=== PATIENT | male | born 1990 | race African-American/Black ===

== ENCOUNTER 2017-09-28 09:43 | Emergency (ER) | payer OTHER ==
[~2017-09-28] VITALS: Ht 180.3 cm; Wt 72.6 kg
[2017-09-28 09:45] VITALS: BP 131/76
== END 2017-09-28 10:10 | disposition home or self-care (01) ==
LOC: ER 09:43
DX: A56.8 Sexually transmitted chlamydial infection of other sites (principal); F17.210 Nicotine dependence, cigarettes, uncomplicated

== ENCOUNTER 2018-04-05 01:42 | Emergency (ER) | payer OTHER ==
[~2018-04-05] VITALS: Ht 180.3 cm; Wt 72.6 kg
[2018-04-05 02:24] LABS: URINE BILIRUBIN NEGATIVE (Negative); URINE BLOOD NEGATIVE (Negative); URINE CLARITY CLEAR; URINE COLOR T; URINE GLUCOSE-RANDOM* NEGATIVE (Negative); URINE KETONES NEGATIVE (Negative); URINE LEUKOCYTES-REFLEX NEGATIVE (Negative); URINE NITRITE-REFLEX NEGATIVE (Negative); URINE PROTEIN (DIPSTICK) NEGATIVE (Negative); URINE SPECIFIC GRAVITY >= 1.030 (1.005-1.035); URINE UROBILINOGEN 0.2 E.U./dl (0.2-1.0)
[2018-04-05] MEDS ORDERED: TRIAMCINOLONE 080 G3 TOP (02:44)
[2018-04-05 02:50] VITALS: BP 147/80
== END 2018-04-05 03:00 | disposition home or self-care (01) ==
LOC: ER 01:42
PROVIDERS: Student in an Organized Health Care Education/Training Program
DX: N48.1 Balanitis (principal); F17.210 Nicotine dependence, cigarettes, uncomplicated

== ENCOUNTER 2018-10-02 23:26 | Emergency (ER) | payer OTHER ==
[~2018-10-02] VITALS: Ht 177.8 cm; Wt 77.1 kg
[~2018-10-02 23:26] MED LIST: TRIAMCINOLONE 080 G3 TOP
[2018-10-02] MEDS ORDERED: NOHOMEMEDICATIONS (23:39)
[2018-10-03] MEDS ORDERED: TRIAMCINOLONE A80 G2 TOP (03:13)
[2018-10-03 03:53] VITALS: BP 130/76
== END 2018-10-03 03:50 | disposition home or self-care (01) ==
LOC: ER 23:26
PROVIDERS: Emergency Medicine
DX: H53.8 Other visual disturbances (principal); F17.210 Nicotine dependence, cigarettes, uncomplicated

== ENCOUNTER 2019-02-06 08:20 | Emergency (ER) | payer OTHER ==
[~2019-02-06] VITALS: Ht 177.8 cm; Wt 74.4 kg
[~2019-02-06 08:20] MED LIST changes: +NOHOMEMEDICATIONS; +TRIAMCINOLONE A80 G2 TOP
[2019-02-06 08:45] LABS: URINE BILIRUBIN NEGATIVE (Negative); URINE BLOOD NEGATIVE (Negative); URINE CLARITY CLEAR; URINE COLOR YELLOW; URINE GLUCOSE-RANDOM* NEGATIVE (Negative); URINE KETONES NEGATIVE (Negative); URINE LEUKOCYTES-REFLEX NEGATIVE (Negative); URINE NITRITE-REFLEX NEGATIVE (Negative); URINE PROTEIN (DIPSTICK) NEGATIVE (Negative); URINE SPECIFIC GRAVITY 1.025 (1.005-1.035); URINE UROBILINOGEN 0.2 E.U./dl (0.2-1.0)
[2019-02-06 09:19] VITALS: BP 123/77
== END 2019-02-06 09:25 | disposition home or self-care (01) ==
LOC: ER 08:20
PROVIDERS: Emergency Medicine
DX: M54.5 Low back pain (principal); F17.210 Nicotine dependence, cigarettes, uncomplicated

== ENCOUNTER 2020-12-29 16:54 | Emergency (ER) | payer OTHER ==
[~2020-12-29] VITALS: Ht 180.3 cm; Wt 79.4 kg
[2020-12-29] MEDS ORDERED: CORTISPORIN OTI10 M2 OTIC (17:05)
[2020-12-29 17:25] VITALS: BP 141/89
== END 2020-12-29 17:25 | disposition home or self-care (01) ==
LOC: ER 16:54
DX: T16.2XXA Foreign body in left ear, initial encounter (principal); F17.210 Nicotine dependence, cigarettes, uncomplicated; X58.XXXA Exposure to other specified factors, initial encounter; Y93.89 Activity, other specified; Y92.89 Other specified places as the place of occurrence of the external cause; Y99.8 Other external cause status

== ENCOUNTER 2021-02-07 13:16 | Observation (INO) | payer OTHER ==
[~2021-02-07] VITALS: Ht 180.3 cm; Wt 76.2 kg
[~2021-02-07 13:16] MED LIST changes: +CORTISPORIN OTI10 M2 OTIC
[2021-02-07 13:17] VITALS: BP 145/83
--- NOTE | 2021-02-07 14:03 | EKG ---
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
[2021-02-07 14:49] LABS: CALCIUM 8.2 mg/dL (8.5-10.1); CREATININE 1.1 mg/dL (0.7-1.3); POTASSIUM 4.2 mmol/L (3.5-5.1)
[2021-02-07 14:52] LABS: ALBUMIN 3.7 g/dL (3.4-5.0); TOTAL BILIRUBIN 0.2 mg/dL (0.2-1.0); TOTAL PROTEIN 6.8 g/dL (6.4-8.2)
[2021-02-07 15:37] LABS: ABSOLUTE NEUTROPHILS 1.3 thou/uL (1.4-8.2); BASOPHILS 1.7 % (0.0-2.0); EOSINOPHILS 3.1 % (0.0-3.0); HEMATOCRIT 30.7 % (42.0-52.0); HEMOGLOBIN 9.8 gm/dL (14.0-18.0); LYMPHOCYTES 36.9 % (24.0-44.0); MCV 84.5 fL (80.0-100.0); PLATELET COUNT 174 thou/uL (150-400); POLYS 35.3 % (36.0-66.0); RBC 3.63 mil/uL (4.50-6.00); RDW 14.3 % (10.5-14.5); WBC 3.6 thou/uL (4.0-11.0)
[2021-02-07 17:22] LABS: AMP/METHAMP Negative (Negative); BARBITURATES Negative (Negative); BENZODIAZEPINES Negative (Negative); COCAINE Negative (Negative); METHADONE Negative (Negative); OPIATES Negative (Negative); PCP Negative (Negative)
[2021-02-07 20:09] VITALS: BP 119/73
[2021-02-08 05:50] VITALS: BP 141/75
--- NOTE | 2021-02-08 06:39 | NUR ---
ADMISSION: PT ARRIVED ON UNIT AT 0600. PT ALERT & ORIENTED X 4. CURRENTLY ON RA. NO C/O OF PAIN/N/V. VSS AFEBRLE. PT IS UP AD KATHERINE. CARE PLAN IN PLACE AND INTERVENTIONS SET. WILL CONTINUE TO MONITOR.
[2021-02-08 06:46] LABS: ALBUMIN 3.6 g/dL (3.4-5.0); CALCIUM 8.5 mg/dL (8.5-10.1); CREATININE 1.1 mg/dL (0.7-1.3); POTASSIUM 4.8 mmol/L (3.5-5.1)
[2021-02-08 07:50] VITALS: BP 136/95
--- NOTE | 2021-02-08 08:24 | NUR ---
Nutrition screening risk identified for wt loss ~7 lb from usual and decreased oral intake. Admit with COVID+ dx, chest pain and elevated troponin. Cardiology workup in progress. Lipid profile pending. Has regular diet ordered, otherwise healthy and BMI wnl. Presents low nutrition risk at this time.
[2021-02-08 08:41] LABS: CHOLESTEROL 154 mg/dL (<200); HDL CHOLESTEROL 63 mg/dL (>40); LDL CHOLESTEROL 81 mg/dL (<100); TC:HDL 2.4 Ratio (Not establshd); TRIGLYCERIDE 53 mg/dL (<150); VLDL 11 mg/dL (<40)
[2021-02-08] MEDS ORDERED: METOPROLOL SUCC25 M1 PO (09:58)
[2021-02-08 11:11] VITALS: BP 138/78
--- NOTE | 2021-02-08 11:37 | 2DMMODE ---
[facility] [place] [address] 2 D/M-MODE ECHOCARDIOGRAM Name: RO VASQUEZ Room #: 353-P [facility] Eliana Gomes#: [id number] Admission: 02/07/21 Attend Phys: Fred Arenas Discharge: Date of : [birth year] Report #: [id number] THIS REPORT FOR: cc: YOU - Helen family physician/PCP YOU - No family physician/PCP Henok Garg MD [facility] ~ APPROVED REPORT Study performed: 02/08/2021 11:21:10 EXAM: Comprehensive 2D, Doppler, and color-flow Echocardiogram Patient Location: In-Patient Room #: 353 BSA: 1.99 HR: 62 bpm BP: 136/95 mmHg Rhythm: NSR Other Information Study Quality: Good Risk Factors: Cardiac Risk Factors: HTN Indications Dyspnea Chest Pain 2D Dimensions RVDd: 35.03 mm IVSd: 12.29 (7-11mm) LVOT Diam: 21.72 (18-24mm) LVDd: 42.72 mm PWd: 12.33 (7-11mm) Ascending Ao: 30.84 (22-36mm) LVDs: 25.51 (25-40mm) Left Atrium: 39.89 (27-40mm) Aortic Root: 31.57 mm Volumes Left Atrial Volume (Systole) Single Plane 4CH: 17.83 mL Single Plane 2CH: 25.67 mL Aortic Valve AoV Peak Billy.: 1.64 m/s [facility] [address] [place] [address] 2 D/M-MODE ECHOCARDIOGRAM Name: RO VASQUEZ Room #: 353-P [facility] IN .R.#: [id number] Admission: 02/07/21 Attend Phys: Fred Jimenez Discharge: Date of : 89 Report #: [id number] AO Peak Gr.: 10.76 mmHg LVOT Max P.77 mmHg AO Mean Gr.: 4.85 mmHg LVOT Mean P.43 mmHg AO V2 Mean: 1.01 m/s LVOT Max V: 1.09 m/s AO V2 VTI: 29.76 cm LVOT Mean V: 0.73 m/s MAX (VTI): 3.00 cm2 LVOT V1 VTI: 24.11 cm MAX Vmax: 2.47 cm2 SV (LVOT): 89.29 mL Mitral Valve E/A Ratio: 2.4 MV Decel. Time: 362.35 ms MV E Max Billy.: 1.05 m/s MV A Billy.: 0.44 m/s MV PHT: 105.08 ms Pulmonary Valve PV Peak Billy.: 1.18 m/s PV Peak Gr.: 5.52 mmHg Tricuspid Valve TR Peak Billy.: 2.58 m/s TR Peak Gr.: 26.71 mmHg Left Ventricle The left ventricle is normal size. There is normal LV segmental wall motion. Borderline concentric left ventricular hypertrophy. The left ventricular systolic function is normal. The left ventricular ejection fraction is within the normal range. LVEF is 65%. The left ventricular diastolic function is normal. Right Ventricle The right ventricle is normal size. There is normal right ventricular wall thickness. The right ventricular systolic function is normal. Atria The left atrium size is normal. The interatrial septum is intact with no evidence for an atrial septal defect. The right atrium size is normal. Aortic Valve Aortic valve is grossly normal in structure. Mild aortic regurgitation. There is no aortic valvular stenosis. Mitral Valve The mitral valve is normal in structure. Trace mitral regurgitation. No evidence of mitral valve stenosis. [facility] [address] [place] [address] 2 D/M-MODE ECHOCARDIOGRAM Name: RO VASQUEZ Room #: 353-P [facility] IN .R.#: [id number] Admission: 02/07/21 Attend Phys: Fred Jimenez Discharge: Date of : 89 Report #: [id number] Tricuspid Valve The tricuspid valve is normal in structure. There is no tricuspid valve stenosis. Mild tricuspid regurgitation. Estimated PAP 30 mmHg. Pulmonic Valve The pulmonary valve is normal in structure. Mild pulmonic regurgitation. Great Vessels The aortic root is normal in size. IVC is normal in size and collapses >50% with inspiration. Pericardium There is no pericardial effusion. Critical Notification Critical Value: No <Conclusion> Normal left ventricle size with borderline concentric hypertrophy Ejection fraction 65% No segmental wall motion abnormality Normal right ventricle size/function Normal atrial size Normal aortic/mitral valve structure and function Mild tricuspid valve insufficiency Pulmonary systolic pressure estimated 30 mmHg No pericardial effusion Normal aortic root size <ELECTRONICALLY SIGNED> By: Henok Garg MD, FACC 02/08/21 1137 113 113 Henok Garg MD, FACC /INF
[2021-02-08 16:07] VITALS: BP 125/86
[2021-02-08 16:12] VITALS: BP 125/86
--- NOTE | 2021-02-08 16:15 | NUR ---
INITIAL ASSESSMENT/DISCHARGE NOTE: KINGSLEY reviewed chart and spoke with nursing and attending physician. Pt was admitted from home due to chest pain/elevated troponin. Pt did have a positive COVID test in the ER. Pt placed in Enhanced Isolation. Pt is medically stable to discharge home today. KINGSLEY spoke with pt via phone. Introduced role of SW. Pt is alert/orientated x 4. Pt reports he lives at home and is normally independent with ADLs. No use of DME. Pt reports he recently started a new job and should have active insurance in 2-3 week. KINGSLEY faxed Health Resource Guide and Safety net clinic list to pt's nurse to provide to pt with discharge ppwk. Pt has one new prescription. [facility] is already closed for the holiday weekend. Pt states he will take the script to a pharmacy to be filled. Pt will have transportation home. KINGSLEY updated pt's nurse. [employer] to screen pt for possible Medicaid application. No additional SW needs identified at this time. KINGSLEY is available to assist should needs arise.
[2021-02-08 16:27] VITALS: BP 125/86
--- NOTE | 2021-02-08 17:31 | NUR ---
PATIENT DISCHARGED TO HOME. DISCHARGE EDUCATION DONE, NO QUESTIONS OR CONERNS BY PATIENT DURING TEACHING. TV AND TELE REMOVED. PATIENT REQUESTED TO WALK OUT, PATIENT WALKED OUT WITH STAFF TO FRIEND WAITING WITH VEHICLE.
== END 2021-02-08 17:39 | disposition home or self-care (01) ==
LOC: ER 13:16 → EROBS 14:46 → 3W 02-08 06:04
PROVIDERS: Emergency Medicine; Nurse Practitioner Adult Health; ADMIT Hospitalist; ATTEND Hospitalist
DX: U07.1 COVID-19 (principal); R07.2 Precordial pain; F17.200 Nicotine dependence, unspecified, uncomplicated; Z79.899 Other long term (current) drug therapy

== ENCOUNTER 2021-02-21 21:04 | Emergency (ER) | payer OTHER ==
[~2021-02-21] VITALS: Ht 180.3 cm; Wt 74.8 kg
[~2021-02-21 21:04] MED LIST changes: +METOPROLOL SUCC25 M1 PO
[2021-02-21 22:22] LABS: ABSOLUTE NEUTROPHILS 6.5 thou/uL (1.4-8.2); BASOPHILS 0.7 % (0.0-2.0); EOSINOPHILS 1.5 % (0.0-3.0); HEMATOCRIT 40.4 % (42.0-52.0); HEMOGLOBIN 13.6 gm/dL (14.0-18.0); MCH 27.8 pg (26.0-34.0); MCHC 33.7 g/dL (28.0-37.0); MCV 82.5 fL (80.0-100.0); MONOCYTES 7.5 % (1.0-8.0); PLATELET COUNT 334 thou/uL (150-400); POLYS 52.3 % (36.0-66.0); RBC 4.89 mil/uL (4.50-6.00); RDW 14.1 % (10.5-14.5); WBC 12.4 thou/uL (4.0-11.0)
[2021-02-21 22:29] LABS: CALCIUM 8.7 mg/dL (8.5-10.1); CREATININE 1.1 mg/dL (0.7-1.3); POTASSIUM 3.6 mmol/L (3.5-5.1)
[2021-02-21 22:33] LABS: ALBUMIN 4.1 g/dL (3.4-5.0); DIRECT BILIRUBIN 0.1 mg/dL (<0.1-0.2); TOTAL BILIRUBIN 0.3 mg/dL (0.2-1.0); TOTAL PROTEIN 7.3 g/dL (6.4-8.2)
[2021-02-21 23:10] VITALS: BP 138/85
--- NOTE | 2021-02-23 08:29 | EKG ---
[place] [address] [facility] [place] [address] ELECTROCARDIOGRAM REPORT Name: RO VASQUEZ [facility] [id number] Admission: 02/21/21 Attend Phys: Discharge: 02/21/21 Date of : [birth year] Report #: [id number] [facility] ED Test Date: 2021-02-21 Test Time: 22:07:18 Pat Name: RO MOREAU Department: Room: Gender: Thermoforming Operator: DOROTEO : 1990 Requested By: Charanjit Rosario Order Number: [id number] MD: Benji Finley Measurements Intervals [place] Rate: 87 P: -10 [place]: 163 QRS: 28 QRSD: 107 T: 42 QT: 360 QTc: 433 Interpretive Statements Sinus rhythm Right ventricular conduction delay Compared to ECG 02/07/2021 13:20:27 Septal Q waves are less prominent Electronically Signed On 02-23-2021 8:29:06 WELDER FABRICATOR by Benji Finley [email or web address] <ELECTRONICALLY SIGNED> By: Benji Finley MD, [facility] 02/23/21 0829 2207 06 Benji Finley MD, FACC /EPI
== END 2021-02-21 23:10 | disposition home or self-care (01) ==
LOC: ER 21:04
PROVIDERS: Emergency Medicine
DX: R42 Dizziness and giddiness (principal); R00.2 Palpitations; F12.90 Cannabis use, unspecified, uncomplicated; F17.210 Nicotine dependence, cigarettes, uncomplicated

== ENCOUNTER 2021-03-28 09:31 | Emergency (ER) | payer OTHER ==
[~2021-03-28] VITALS: Ht 177.8 cm; Wt 74.8 kg
[2021-03-28 11:00] LABS: ABSOLUTE NEUTROPHILS 3.5 thou/uL (1.4-8.2); HEMATOCRIT 41.1 % (42.0-52.0); HEMOGLOBIN 13.2 gm/dL (14.0-18.0); MCH 26.9 pg (26.0-34.0); MCHC 32.2 g/dL (28.0-37.0); MCV 83.5 fL (80.0-100.0); MONOCYTES 8.6 % (1.0-8.0); PLATELET COUNT 286 thou/uL (150-400); POLYS 51.4 % (36.0-66.0); RBC 4.92 mil/uL (4.50-6.00); RDW 14.7 % (10.5-14.5); WBC 6.8 thou/uL (4.0-11.0)
[2021-03-28 11:14] LABS: CALCIUM 8.8 mg/dL (8.5-10.1); CREATININE 0.9 mg/dL (0.7-1.3); POTASSIUM 4.4 mmol/L (3.5-5.1)
[2021-03-28 11:24] LABS: ALBUMIN 3.8 g/dL (3.4-5.0); TOTAL BILIRUBIN 0.3 mg/dL (0.2-1.0); TOTAL PROTEIN 7.1 g/dL (6.4-8.2)
[2021-03-28] MEDS ORDERED: IBUPROFEN 400400 M2 PO (14:34)
[2021-03-28 14:47] VITALS: BP 135/86
--- NOTE | 2021-03-29 08:06 | EKG ---
[place] [address] [facility] [place] [address] ELECTROCARDIOGRAM REPORT Name: RO VASQUEZ Room #: [facility]#: [id number] Admission: 03/28/21 Attend Phys: Discharge: 03/28/21 Date of : [birth year] Report #: [id number] [facility] ED Test Date: 2021-03-28 Test Time: 09:40:54 Pat Name: RO MOREAU Department: Room: Gender: End Maker: : 1990 Requested By: Rachel Delcid Order Number: [id number] MD: Benji Finley Measurements Intervals [place] Rate: 77 P: 37 [place]: 156 QRS: 27 QRSD: 108 T: 39 QT: 355 QTc: 402 Interpretive Statements Sinus rhythm RSR' in V1 or V2, right VCD ST elevation suggests early repolarization Compared to ECG 02/21/2021 22:07:18 ST (T wave) deviation more prominent Electronically Signed On 03-29-2021 8:06:13 ASSISTANT PROFESSOR OF ART by Benji Finley [email or web address] <ELECTRONICALLY SIGNED> By: Benji Finley MD, [facility] 03/29/21805 9 9 Benji Finley MD, [facility] /EPI
== END 2021-03-28 14:49 | disposition home or self-care (01) ==
LOC: ER 09:31
PROVIDERS: Emergency Medicine
DX: R07.89 Other chest pain (principal); F17.210 Nicotine dependence, cigarettes, uncomplicated; Z79.899 Other long term (current) drug therapy

== ENCOUNTER → 2021-04-21 | Outpatient (CLI) | payer OTHER ==
[~2021-04-21] MED LIST changes: +IBUPROFEN 400400 M2 PO
== END ==
LOC: SJCVCIMAG 13:11
PROVIDERS: ATTEND Internal Medicine
DX: I08.8 Other rheumatic multiple valve diseases (principal); R94.31 Abnormal electrocardiogram [ECG] [EKG]; I31.9 Disease of pericardium, unspecified